=== PATIENT | male | born 1965 | race Caucasian/White ===

== ENCOUNTER 2023-03-06 01:07 | Emergency (ER) | payer MEDICARE ==
[~2023-03-06] VITALS: Ht 175.2 cm; Wt 98.9 kg
[2023-03-06] MEDS ORDERED: MELOXICAM15 MG PO (02:45)
== END 2023-03-06 03:06 | disposition home or self-care (01) ==
LOC: ED 01:07
DX: S93.601A Unspecified sprain of right foot, initial encounter (principal); Z88.8 Allergy status to other drugs, medicaments and biological substances; Z87.891 Personal history of nicotine dependence; X58.XXXA Exposure to other specified factors, initial encounter; Y93.89 Activity, other specified; Y92.89 Other specified places as the place of occurrence of the external cause; Y99.8 Other external cause status

== ENCOUNTER 2023-03-10 01:27 | Emergency (ER) | payer OTHER ==
[~2023-03-10] VITALS: Ht 175.2 cm; Wt 97.1 kg
[~2023-03-10 01:27] MED LIST: MELOXICAM15 MG PO
[2023-03-10] MEDS ORDERED: MELOXICAM15 MG PO (05:19)
== END 2023-03-10 05:42 | disposition home or self-care (01) ==
LOC: ED 01:27
DX: S93.602A Unspecified sprain of left foot, initial encounter (principal); Z88.8 Allergy status to other drugs, medicaments and biological substances; Z98.890 Other specified postprocedural states; X58.XXXA Exposure to other specified factors, initial encounter; Y93.89 Activity, other specified; Y92.89 Other specified places as the place of occurrence of the external cause; Y99.8 Other external cause status

== ENCOUNTER 2023-03-11 04:51 | Emergency (ER) | payer OTHER | END 2023-03-11 05:40 | disposition home or self-care (01) | LOC: ED 04:51 | DX: S60.455A Superficial foreign body of left ring finger, initial encounter (principal); Z88.8 Allergy status to other drugs, medicaments and biological substances; Z98.890 Other specified postprocedural states; W22.8XXA Striking against or struck by other objects, initial encounter; Y93.89 Activity, other specified; Y92.89 Other specified places as the place of occurrence of the external cause; Y99.8 Other external cause status ==

== ENCOUNTER 2023-03-15 06:13 | Emergency (ER) | payer OTHER ==
[2023-03-15] MEDS ORDERED: MELOXICAM15 MG PO (06:33)
[2023-03-15] MEDS ORDERED: VIBRAMYCIN100 MG PO (06:33)
== END 2023-03-15 06:48 | disposition home or self-care (01) ==
LOC: ED 06:13
DX: M79.671 Pain in right foot (principal); Z88.8 Allergy status to other drugs, medicaments and biological substances; Z98.890 Other specified postprocedural states

== ENCOUNTER 2023-03-20 16:30 | Emergency (ER) | payer OTHER ==
[~2023-03-20] VITALS: Ht 175.2 cm; Wt 101.2 kg
[~2023-03-20 16:30] MED LIST changes: +VIBRAMYCIN100 MG PO
[2023-03-20] MEDS ORDERED: MELOXICAM15 MG PO (17:20)
== END 2023-03-20 17:38 | disposition home or self-care (01) ==
LOC: ED 16:30
DX: Z76.0 Encounter for issue of repeat prescription (principal); Z88.8 Allergy status to other drugs, medicaments and biological substances; Z98.890 Other specified postprocedural states

== ENCOUNTER 2023-03-31 05:45 | Emergency (ER) | payer OTHER ==
[~2023-03-31] VITALS: Ht 175.2 cm; Wt 97.5 kg
[2023-04-01] MEDS ORDERED: CEPHALEXIN500 M1 PO (14:25)
== END 2023-03-31 07:51 | disposition left against medical advice (07) ==
LOC: ED 05:45
DX: R07.81 Pleurodynia (principal); T74.21XA Adult sexual abuse, confirmed, initial encounter; H92.22 Otorrhagia, left ear; Z88.8 Allergy status to other drugs, medicaments and biological substances; Z98.890 Other specified postprocedural states; F17.210 Nicotine dependence, cigarettes, uncomplicated; Z53.29 Procedure and treatment not carried out because of patient's decision for other reasons

== ENCOUNTER 2023-04-01 07:13 | Emergency (ER) | payer OTHER ==
[~2023-04-01] VITALS: Ht 175.2 cm; Wt 93.0 kg
[2023-04-01] MEDS ORDERED: CEPHALEXIN500 M1 PO (14:25)
== END 2023-04-01 08:18 | disposition home or self-care (01) ==
LOC: ED 07:13
DX: R07.81 Pleurodynia (principal); Z88.8 Allergy status to other drugs, medicaments and biological substances; Z98.890 Other specified postprocedural states; Y09 Assault by unspecified means

== ENCOUNTER 2023-04-01 14:09 | Emergency (ER) | payer OTHER ==
[~2023-04-01] VITALS: Wt 77.1 kg
[2023-04-01] MEDS ORDERED: CEPHALEXIN500 M1 PO (14:25)
== END 2023-04-01 14:56 | disposition home or self-care (01) ==
LOC: ED 14:09
DX: S31.119A Laceration without foreign body of abdominal wall, unspecified quadrant without penetration into peritoneal cavity, initial encounter (principal); Z88.8 Allergy status to other drugs, medicaments and biological substances; Z98.890 Other specified postprocedural states; W26.9XXA Contact with unspecified sharp object(s), initial encounter; Y93.39 Activity, other involving climbing, rappelling and jumping off; Y92.89 Other specified places as the place of occurrence of the external cause; Y99.8 Other external cause status

== ENCOUNTER 2023-04-02 13:55 | Emergency (ER) | payer OTHER ==
[~2023-04-02 13:55] MED LIST changes: +CEPHALEXIN500 M1 PO
== END 2023-04-02 18:01 | disposition home or self-care (01) ==
LOC: ED 13:55
DX: M79.604 Pain in right leg (principal); R58 Hemorrhage, not elsewhere classified; Z88.8 Allergy status to other drugs, medicaments and biological substances; Z98.890 Other specified postprocedural states; Z87.891 Personal history of nicotine dependence

== ENCOUNTER 2023-04-12 06:01 | Emergency (ER) | payer OTHER ==
[~2023-04-12] VITALS: Ht 175.2 cm; Wt 79.4 kg
[2023-04-12] MEDS ORDERED: NEURONTIN300 MG PO (06:45)
== END 2023-04-12 06:55 | disposition home or self-care (01) ==
LOC: ED 06:01
DX: E11.40 Type 2 diabetes mellitus with diabetic neuropathy, unspecified (principal); M79.672 Pain in left foot; Z88.8 Allergy status to other drugs, medicaments and biological substances; Z98.890 Other specified postprocedural states

== ENCOUNTER 2023-04-21 15:30 | Emergency (ER) | payer OTHER ==
[~2023-04-21] VITALS: Ht 175.2 cm; Wt 82.6 kg
[~2023-04-21 15:30] MED LIST changes: +NEURONTIN300 MG PO
[2023-04-21] MEDS ORDERED: IBU800 M1 PO (16:08)
[2023-04-21 16:23] LABS: BASO % 0.5 % (0.0-1.0); EOS # 0.1 10*3/uL (0.0-0.4); EOS % 1.7 % (1.0-4.0); HEMATOCRIT 41.5 % (42.0-52.0); LYMPH # 1.3 10*3/uL (1.3-4.4); LYMPH % 20.1 % (27.0-41.0); MEAN CELL VOLUME 89.2 fl (80.0-94.0); MEAN CORPUSCULAR HGB 29.9 pg (27.0-31.0); MEAN CORPUSCULAR HGB CONC 33.5 g/dl (33.0-37.0); MEAN PLATELET VOLUME 10.5 fl (9.6-12.3); MONO # 0.7 10*3/uL (0.1-1.0); MONO % 10.4 % (3.0-9.0); NEUT # 4.3 10*3/uL (2.3-7.9); NEUT % 66.8 % (47.0-73.0); PLATELET COUNT AUTOMATED 175 10*3/uL (130-400); RED BLOOD COUNT 4.65 10*6/uL (4.50-5.90); RED CELL DISTRI WIDTH 14.5 % (0-14.5); WHITE BLOOD COUNT 6.4 10*3/uL (4.8-10.8)
[2023-04-21 16:53] LABS: ALKALINE PHOSPHATASE 141 U/L (46-116); BUN 18 mg/dl (9-23); CHLORIDE 110 mmol/L (98-107); POTASSIUM 3.5 mmol/L (3.4-5.1); SGPT/ALT 56 U/L (5-49); TOTAL PROTEIN 6.1 gm/dL (6.0-8.0)
== END 2023-04-21 17:30 | disposition home or self-care (01) ==
LOC: ED 15:30
PROVIDERS: Physician Assistant Medical
DX: T33.822A Superficial frostbite of left foot, initial encounter (principal); T33.821A Superficial frostbite of right foot, initial encounter; Z88.8 Allergy status to other drugs, medicaments and biological substances; Z98.890 Other specified postprocedural states; F17.210 Nicotine dependence, cigarettes, uncomplicated

== ENCOUNTER 2023-04-24 02:58 | Emergency (ER) | payer OTHER ==
[~2023-04-24] VITALS: Ht 175.2 cm; Wt 82.6 kg
[~2023-04-24 02:58] MED LIST changes: +IBU800 M1 PO
[2023-04-24] MEDS ORDERED: ARTHRITIS PAI42.5 GM T (04:38)
== END 2023-04-24 04:50 | disposition home or self-care (01) ==
LOC: ED 02:58
DX: E11.40 Type 2 diabetes mellitus with diabetic neuropathy, unspecified (principal); Z88.8 Allergy status to other drugs, medicaments and biological substances; Z98.890 Other specified postprocedural states; Z87.891 Personal history of nicotine dependence

== ENCOUNTER 2023-05-04 00:58 | Emergency (ER) | payer OTHER ==
[~2023-05-04] VITALS: Ht 175.2 cm; Wt 78.0 kg
[~2023-05-04 00:58] MED LIST changes: +ARTHRITIS PAI42.5 GM T
== END 2023-05-04 02:10 | disposition home or self-care (01) ==
LOC: ED 00:58
DX: S61.431A Puncture wound without foreign body of right hand, initial encounter (principal); Z88.8 Allergy status to other drugs, medicaments and biological substances; Z98.890 Other specified postprocedural states; W22.8XXA Striking against or struck by other objects, initial encounter; Y93.89 Activity, other specified; Y92.009 Unspecified place in unspecified non-institutional (private) residence as the place of occurrence of the external cause; Y99.8 Other external cause status

== ENCOUNTER 2023-05-16 10:04 | Emergency (ER) | payer OTHER ==
[~2023-05-16] VITALS: Ht 175.2 cm; Wt 77.1 kg
[2023-05-16 10:53] LABS: BASO % 0.6 % (0.0-1.0); EOS # 0.1 10*3/uL (0.0-0.4); EOS % 1.3 % (1.0-4.0); HEMATOCRIT 41.6 % (42.0-52.0); LYMPH # 1.2 10*3/uL (1.3-4.4); LYMPH % 22.3 % (27.0-41.0); MEAN CELL VOLUME 87.6 fl (80.0-94.0); MEAN CORPUSCULAR HGB 29.3 pg (27.0-31.0); MEAN CORPUSCULAR HGB CONC 33.4 g/dl (33.0-37.0); MEAN PLATELET VOLUME 10.5 fl (9.6-12.3); MONO # 0.4 10*3/uL (0.1-1.0); MONO % 7.3 % (3.0-9.0); NEUT # 3.6 10*3/uL (2.3-7.9); NEUT % 68.3 % (47.0-73.0); PLATELET COUNT AUTOMATED 138 10*3/uL (130-400); RED BLOOD COUNT 4.75 10*6/uL (4.50-5.90); RED CELL DISTRI WIDTH 13.5 % (0-14.5); WHITE BLOOD COUNT 5.3 10*3/uL (4.8-10.8)
[2023-05-16 11:02] LABS: ACT PARTIAL THROMBO TIME 28.5 SECONDS (20.0-32.1)
[2023-05-16 11:11] LABS: ALKALINE PHOSPHATASE 170 U/L (46-116); BUN 10 mg/dl (9-23); CHLORIDE 106 mmol/L (98-107); LIPASE 36 U/L (12-53); POTASSIUM 3.1 mmol/L (3.4-5.1); SGPT/ALT 38 U/L (5-49); TOTAL PROTEIN 6.6 gm/dL (6.0-8.0)
[2023-05-16] MEDS ORDERED: ARTHRITIS AND42.5 GM T (11:58)
[2023-05-16] MEDS ORDERED: ZYPREXA5 M1 PO (11:58)
[2023-05-16] MEDS ORDERED: NORVASC5 MG PO (11:59)
[2023-05-16] MEDS ORDERED: Doxycycline Hyclate 100 MG CAP PO ONE (13:25)
[2023-05-16] MEDS ORDERED: NICOTINE PATCH1 EAC2 TD (13:27)
[2023-05-16] MEDS ORDERED: HYDROCODONE-AC1 EAC1 PO (13:27)
[2023-05-16] MEDS ORDERED: VIBRA-TAB100 MG PO (13:27)
[2023-05-16] MEDS ORDERED: POTASSIUM CHLORIDE 20 MEQ TAB PO ONE (13:30)
== END 2023-05-16 14:49 | disposition home or self-care (01) ==
LOC: ED 10:04
PROVIDERS: Emergency Medicine
DX: L03.115 Cellulitis of right lower limb (principal); Z88.8 Allergy status to other drugs, medicaments and biological substances; Z98.890 Other specified postprocedural states